=== PATIENT | female | born 1945 | race Caucasian/White ===

== ENCOUNTER → 2020-04-21 | Outpatient (CLI) | payer MEDICARE, OTHER ==
--- NOTE | 2020-04-21 12:37 | RAD ---
NECK SOFT TISSUE History: Right neck lump Comparison: None. Findings: Multiple sonographic images of the right neck are submitted. There are some small nonspecific nodes. Preserved sonographic architecture, no discrete suspicious mass or fluid collection demonstrated. Reportedly the area of concern corresponds with the right submandibular gland. Impression: 1. There are some small nonspecific nodes of the right neck, no significantly enlarged nodes or fluid collection demonstrated. Reportedly the area of concern corresponds with the patient's submandibular gland. Electronically signed by: Vaughn Munoz MD (04/21/2020 12:34 PM) [id number]
[2020-04-21 13:17] LABS: BASO % 1 % (0-3); EOS # 0.2 x10^3/uL (0.0-0.7); EOS % 3 % (0-3); HEMATOCRIT 47.1 % (36.0-47.0); HEMOGLOBIN 15.6 g/dL (12.0-15.5); LYMPH # 1.4 x10^3/uL (1.0-4.8); LYMPH % 25 % (24-48); MEAN CORPUSCULAR HEMOGLOBIN 28 pg (25-35); MEAN CORPUSCULAR HGB CONC 33 g/dL (31-37); MEAN CORPUSCULAR VOLUME 84 fL (79-100); MONO # 0.5 x10^3/uL (0.0-1.1); MONO % 10 % (0-9); NEUT # 3.3 x10^3uL (1.8-7.7); NEUT % 61 % (31-73); PLATELET COUNT 162 x10^3/uL (140-400); RED BLOOD COUNT 5.58 x10^6/uL (3.50-5.40); RED CELL DISTRIBUTION WIDTH 15.2 % (11.5-14.5); WHITE BLOOD COUNT 5.5 x10^3/uL (4.0-11.0)
== END | disposition home or self-care (01) ==
LOC: US 12:00
PROVIDERS: ATTEND Physician Assistant
DX: L04.0 Acute lymphadenitis of face, head and neck (principal); R22.1 Localized swelling, mass and lump, neck
CPT/HCPCS: 36415; 76536; 85025; 86140

== ENCOUNTER 2020-08-17 18:47 | Emergency (ER) | payer MEDICARE, OTHER ==
[~2020-08-17] VITALS: Ht 165.1 cm; Wt 101.8 kg
[2020-08-17 18:55] VITALS: BP 185/116
--- NOTE | 2020-08-17 19:29 | PHYS DOC ---
Past History Past Medical History: Hypertension, Hypothyroid Past Surgical History: Hysterectomy, Other Additional Past Surgical Histo: rt hip, bilateral knee,"shattered rt leg" Alcohol Use: Occasionally General Adult EDM: Chief Complaint: LOWER EXT PAIN HPI: HPI: Patient is a 75-year-old female who presents with left calf pain, swelling, and redness. Patient states that she noticed swelling over the weekend but got worse today. Patient denies any injury to the area. Pain is worse with ambulation. Patient took 2 aspirin today with little relief of pain. Patient has 2+ ankle edema, bilaterally. Denies chest pain or shortness of breath. Patient has history of hypertension, hypothyroidism. Review of Systems: Review of Systems: Constitutional: Denies fever or chills Eyes: Denies change in visual acuity HENT: Denies nasal congestion or sore throat Respiratory: Denies cough or shortness of breath Cardiovascular: Denies chest pain or edema GI: Denies abdominal pain, nausea, vomiting, bloody stools or diarrhea : Denies dysuria Musculoskeletal: Denies back pain or joint pain Integument: Reports itchy, painful, hard, redness to left posterior calf Neurologic: Denies headache, focal weakness or sensory changes Endocrine: Denies polyuria or polydipsia Lymphatic: Denies swollen glands Psychiatric: Denies depression or anxiety Allergies: Allergies: Allergies Coded Allergies Type Severity Reaction Last Updated Verified No Known Drug Allergies 08/17/20 No Physical Exam: PE: Constitutional: Well developed, well nourished, no acute distress, non-toxic appearance. [] HENT: Normocephalic, atraumatic, bilateral external ears normal, oropharynx moist, no oral exudates, nose normal. [] Eyes: PERRLA, EOMI, conjunctiva normal, no discharge. [] Neck: Normal range of motion, no tenderness, supple, no stridor. [] Cardiovascular:Heart rate regular rhythm, no murmur [] Lungs & Thorax: Bilateral breath sounds clear to auscultation [] Abdomen: Bowel sounds normal, soft, no tenderness, no masses, no pulsatile masses. [] Skin: Warm, dry, red, hard painful area behind posterior calf Back: No tenderness, no CVA tenderness. [] Extremities: No tenderness, no cyanosis, no clubbing, ROM intact, 2+ pitting edema bilateral ankles, pulses intact Neurologic: Alert and oriented X 3, normal motor function, normal sensory function, no focal deficits noted. [] Psychologic: Affect normal, judgement normal, mood normal. [] Current Patient Data: Vital Signs: Vital Signs Date Time Temp Pulse Resp B/P (MAP) Pulse Ox O2 Delivery O2 Flow Rate FiO2 08/17/20 18:55 75 18 185/116 (139) 97 Room Air EKG: EKG: NSR, HR 65 BPM[] Radiology/Procedures: Radiology/Procedures: []Exam: Chest one view INDICATION: Calf pain, swelling TECHNIQUE: Frontal view of the chest Comparisons: None FINDINGS: The cardiomediastinal silhouette and pulmonary vessels are within normal limits. The lung and pleural spaces are clear. IMPRESSION: No acute cardiopulmonary process. Electronically signed by: Jessy Gomes MD (08/17/2020 8:17 PM) [id number] Left lower extremity venous Doppler dated 08/17/2020. No comparison available. CLINICAL DATA: Left calf pain and swelling. FINDINGS: Grayscale, color-flow and spectral waveform analysis performed to include the deep venous system of the left lower extremity. There is normal compressibility, phasicity and augmentation of flow throughout the deep veins. No filling defect. There is thrombosis of the left small saphenous vein and thrombosis within a varicose vein of the proximal to mid calf region. Lower leg edema. IMPRESSION: 1. No evidence of left lower extremity deep vein thrombosis. 2. 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 Electronically signed by: Alex Phillips MD (08/17/2020 10:07 PM) [id number] DICTATED AND SIGNED BY: ALEX PHILLIPS MD DATE: 08/17/202204 Heart Score: Risk Factors: Risk Factors: DM, Current or recent (<one month) smoker, HTN, HLP, family history of CAD, obesity. Risk Scores: Score 0 - 3: 2.5% MACE over next 6 weeks - Discharge Home Score 4 - 6: 20.3% MACE over next 6 weeks - Admit for Clinical Observation Score 7 - 10: 72.7% MACE over next 6 weeks - Early Invasive Strategies Course & Med Decision Making: Course & Med Decision Making Patient is 75-year-old female presents with left calf pain, swelling, redness. Swelling started over the weekend and has continued to get worse. Patient does have 2+ pitting edema bilaterally which patient states is not new. Patient denies chest pain, shortness of breath. Patient is hemodynamically stable. EKG normal sinus rhythm. Chest x-ray is negative for abnormalities. Ultrasound of left posterior calf is negative for DVT. Ultrasound shows superficial thrombus of the left calf. Patient is instructed to follow-up with her primary care for further evaluation. Will prescribe hydrocodone for pain relief at home. 1. Superficial Venous Thrombosis Dragon Disclaimer: Jade Disclaimer: This electronic medical record was generated, in whole or in part, using a voice recognition dictation system. Departure Departure: Impression: Primary Impression: Superficial vein thrombosis Disposition: 01 DC HOME SELF CARE/HOMELESS Condition: STABLE Referrals: SKYLER MATA (PCP) Additional Instructions: You were seen in the ER for swelling and pain to left calf. Your chest x-ray was negative. The ultrasound of your left leg was negative for a deep vein thrombosis. The ultrasound did show a superficial vein thrombosis. Please follow-up with your primary care for further management. Please return to the emergency room with worsening conditions or concerns. EMERGENCY DEPARTMENT GENERAL DISCHARGE INSTRUCTIONS Thank you for coming to [facility] (ED) today and trusting us with you care. We trust that you had a positivie experience in our Emergency Department. If you wish to speak to the department management, you may call the director at [phone]. YOUR FOLLOW UP INSTRUCTIONS ARE FOLLOWS: 1. Do you have a private Doctor? If you do not have a private doctor, please ask for a resource list of physicians or clinics that may be able to assist you with follow up care. 2. The Emergency Physician has interpreted your x-rays. The X-Ray specialist will also review them. If there is a change in the findings, you will be notified in 48 hours when at all possible. 3. A lab test or culture has been done, your results will be reviewed and you will be notified if you need a change in treatment. ADDITIONAL INSTRUCTIONS AND INFORMATION: 1. Your care today has been supervised by a physician who is specially trained in emergency care. Many problems require more than one evaluation for a complete diagnosis and treatment. We recommend that you schedule your follow up appointment as recommended to ensure complete treatment of you illness or injury. If you are unable to obtain follow up care and continue to have a problem, or if your condition worsens, we recommend that you return to the ED. 2. We are not able to safely determine your condition over the phone nor are we able to give sound medical advice over the phone. For these safety reasons, if you call for medical advice we will ask you to come to the ED for further evaluation. 3. If you have any questions regarding these discharge instructions please call the ED at [phone]. SAFETY INFORMATION: In the interest of safety, wellness, and injury prevention; we encourage you to wear your sealbelt, if you smoke; quite smoking, and we encourage family to use a protective helmet for bicycling and other sporting events that present an increased risk for head injury. IF YOUR SYMPTOMS WORSEN OR NEW SYMPTOMS DEVELOP, OR YOU HAVE CONCERNS ABOUT YOUR CONDITION; OR IF YOUR CONDITION WORSENS WHILE YOU ARE WAITING FOR YOUR FOLLOW UP APPOINTMENT; EITHER CONTACT YOUR PRIMARY CARE DOCTOR, THE PHYSICIAN WHOSE NAME AND NUMBER YOU WERE GIVEN, OR RETURN TO THE ED IMMEDIATELY. Scripts Hydrocodone Bit/Acetaminophen (HYDROCODONE-APAP 5-325 ) 1 Each Tablet 1 TAB PO PRN Q6HRS PRN for PAIN for 3 Days, #12 TAB 0 Refills Prov: KRISTI SALAMANCA APRN 08/17/20 KRISTI SALAMANCA APRN Aug 17, 2020 19:29
--- NOTE | 2020-08-17 20:19 | RAD ---
Exam: Chest one view INDICATION: Calf pain, swelling TECHNIQUE: Frontal view of the chest Comparisons: None FINDINGS: The cardiomediastinal silhouette and pulmonary vessels are within normal limits. The lung and pleural spaces are clear. IMPRESSION: No acute cardiopulmonary process. Electronically signed by: Jessy Gomes MD (08/17/2020 8:17 PM) [id number]
--- NOTE | 2020-08-17 22:10 | RAD ---
Left lower extremity venous Doppler dated 08/17/2020. No comparison available. CLINICAL DATA: Left calf pain and swelling. FINDINGS: Grayscale, color-flow and spectral waveform analysis performed to include the deep venous system of t he left lower extremity. There is normal compressibility, phasicity and augmentation of flow througho ut the deep veins. No filling defect. There is thrombosis of the left small saphenous vein and thrombosis within a varicose vein of the pro ximal to mid calf region. Lower leg edema. IMPRESSION: 1. No evidence of left lower extremity deep vein thrombosis. 2. 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 Electronically signed by: Alex Phillips MD (08/17/2020 10:07 PM) [id number]
[2020-08-17] MEDS ORDERED: HYDR-2155 PO (22:34)
--- NOTE | 2020-08-17 23:22 | EKG ---
[facility] ED [facility] [address] [place] [id number] Test Date: 2020-08-17 Test Time: 19:43:24 Pat Name: AMY MILLER Department: Room: Gender: F Diabetes Clinical Manager: : 1945 Requested By: KRISTI SALAMANCA Order Number: [id number] Reading MD: Measurements Intervals Lohman Rate: 65 P: 32 HI: 208 QRS: 8 QRSD: 90 T: 34 QT: 392 QTc: 408 Interpretive Statements SINUS RHYTHM NO SPECIFIC ECG ABNORMALITIES RI6.02 No previous ECG available for comparison
== END 2020-08-17 23:00 | disposition home or self-care (01) ==
LOC: ER 18:47
DX: I82.812 Embolism and thrombosis of superficial veins of left lower extremity (principal); I10 Essential (primary) hypertension; E03.9 Hypothyroidism, unspecified
CPT/HCPCS: 71045; 93005; 93971; 99284

== ENCOUNTER → 2020-10-02 | Outpatient (CLI) | payer MEDICARE, OTHER ==
[2020-08-17 23:00] VITALS: BP 153/96
[~2020-10-02] MED LIST: HYDR-2155 PO
--- NOTE | 2020-10-02 17:39 | RAD ---
XR KNEE _3 VIEWS_LT DATE: 10/02/2020 2:37 PM INDICATION: LEFT KNEE PAIN COMPARISON: None. FINDINGS: Postsurgical changes of total knee arthroplasty. Surgical hardware is intact. No periprosthetic lucen cy or fracture. No knee joint effusion. IMPRESSION: No acute osseous abnormality. Total knee arthroplasty. Electronically signed by: Vaughn Maher MD (10/02/2020 5:36 PM) [id number]
== END ==
LOC: DXRAD 14:30
PROVIDERS: ATTEND Physician Assistant
DX: M25.562 Pain in left knee (principal); Z96.652 Presence of left artificial knee joint
CPT/HCPCS: 73562